=== PATIENT | female | born 1995 | race Caucasian/White ===

== ENCOUNTER → 2017-01-04 | Outpatient (CLI) | payer BC ==
--- NOTE | 2017-01-04 08:48 | US ---
EXAMINATION TYPE: US pelvic complete DATE OF EXAM: 01/04/2017 COMPARISON: CT & US CLINICAL HISTORY: Q51.3 Bicornuate uterus. Bicornuate uterus, history of ovarian cysts, 0 TECHNIQUE: Transabdominal (TA) Date of LMP: 12/30/2016 EXAM MEASUREMENTS: Uterus: 8.3 x 3.0 x 4.7 cm Endometrial Stripe: left: 0.4cm, right: 0.3cm Right Ovary: 3.3 x 2.2 x 2.1 cm Left Ovary: 2.9 x 1.7 x 2.4 cm 1. Uterus: appears to be bicornuate, otherwise appears wnl 2. Endometrium: right and left wnl 3. Right Ovary: multiple follicles with largest measuring 1.0cm 4. Left Ovary: multiple follicles with largest measuring 1.0cm 5. Bilateral Adnexa: wnl 6. Posterior cul-de-sac: wnl Bladder: mobile debris seen within posterior portion IMPRESSION: 1. Bicornuate uterus. 2. Small ovarian follicles noted bilaterally.
== END | disposition home or self-care (01) ==
LOC: RADUSWWP 07:06
PROVIDERS: ATTEND Family Medicine
DX: Q51.3 Bicornate uterus (principal)
CPT/HCPCS: 76856

== ENCOUNTER → 2021-06-26 | Outpatient (CLI) | payer BC ==
[2021-06-26 11:02] LABS: Basophils # (A) 0.05 X 10*3/uL (0.00-0.10); Basophils % (A) 0.7 %; Eosinophils # (A) 0.15 X 10*3/uL (0.04-0.35); Eosinophils % (A) 2.1 %; HCT 41.8 % (37.2-46.3); HGB 12.9 g/dL (12.0-15.0); Lymphocytes % (A) 26.6 %; MCH 25.4 pg (27.0-32.0); MCHC 30.9 g/dL (32.0-37.0); MCV 82.3 fL (80.0-97.0); Mean Platelet Volume 12.9 fL (9.5-12.2); Monocytes # (A) 0.45 X 10*3/uL (0.20-1.00); Monocytes % (A) 6.3 %; Neutrophils # (A) 4.57 X 10*3/uL (1.80-7.70); Platelet Count 295 X 10*3/uL (140-440); RBC 5.08 X 10*6/uL (4.10-5.20); RDW 12.5 % (11.5-14.5); WBC 7.14 X 10*3/uL (4.50-10.00)
[2021-06-26 11:18] LABS: ALT 52 U/L (8-44); AST 40 U/L (13-35); African American GFR (CKD) 87.1 (60.0-200.0); Albumin 4.2 g/dL (3.8-4.9); Albumin/Globulin Ratio 1.14 (1.60-3.17); Alkaline Phosphatase 95 U/L (41-126); BUN/Creat Ratio 10.38 Ratio (12.00-20.00); Bilirubin, Conjugated <0.20 mg/dL (0.20-0.40); Blood Urea Nitrogen 10.8 mg/dL (9.0-27.0); Calcium 9.3 mg/dL (8.7-10.3); Carbon Dioxide 21.3 mmol/L (20.0-27.5); Chloride 101 mmol/L (96-109); Chol/HDL Ratio 4.47 Ratio; Globulin 3.7 g/dL (1.6-3.3); Glucose 80 mg/dL (70-110); LDL Cholesterol,Calculated 121.9 mg/dL (0.0-131.0); Non-African American GFR(CKD) 75.1 (60.0-200.0); Potassium 3.7 mmol/L (3.5-5.5); Sodium 136 mmol/L (135-145)
[2021-06-26 12:47] LABS: DNA Double-Stranded NEGATIVE (NEGATIVE)
[2021-06-26 15:14] LABS: Erythrocyte Sedimentation Rate 40 mm/Hr (0-20)
== END | disposition home or self-care (01) ==
LOC: LABWHC1 07:37
PROVIDERS: ATTEND Internal Medicine Rheumatology
DX: E78.2 Mixed hyperlipidemia (principal); E66.9 Obesity, unspecified; R74.01 Elevation of levels of liver transaminase levels; R76.8 Other specified abnormal immunological findings in serum; Z79.899 Other long term (current) drug therapy
CPT/HCPCS: 36415; 80048; 80061; 80076; 83516; 84443; 85025; 85652; 86038; 86140; 86160; 86225; 86376; 86480